=== PATIENT | male | born 1955 ===

== ENCOUNTER 2018-03-19 09:42 | Day surgery (SDC) | payer BC ==
[2018-03-19] MEDS ORDERED: Propofol 10 mg/ml Inj (20 ML) ONE (11:57)
[2018-03-19] MEDS ORDERED: Lidocaine Hydrochloride 5 ML INJ ONE (12:10)
[2018-03-19 14:04] VITALS: BP 113/69; PULSE 54; RESP 12; TEMP 97.2; O2SAT 100
== END 2018-03-19 13:55 | disposition home or self-care (01) ==
LOC: C.ENDO 09:42
PROVIDERS: ATTEND Internal Medicine Gastroenterology
DX: Z12.11 Encounter for screening for malignant neoplasm of colon (principal); K21.0 Gastro-esophageal reflux disease with esophagitis; K57.90 Diverticulosis of intestine, part unspecified, without perforation or abscess without bleeding; K29.50 Unspecified chronic gastritis without bleeding; B96.81 Helicobacter pylori [H. pylori] as the cause of diseases classified elsewhere; D12.2 Benign neoplasm of ascending colon
CPT/HCPCS: 43239; 45385; 88305; J2704; J3010